=== PATIENT | male | born 1970 | race Caucasian/White ===

== ENCOUNTER 2018-11-05 01:28 | Emergency (ER) | payer BC ==
[~2018-11-05] VITALS: Ht 170.2 cm; Wt 77.1 kg
[~2018-11-05 01:28] MED LIST: ALTOPREV40 MG PO; PRED FORTE1 ML OD; VYVANSE20 MG PO
--- OUTSIDE RECORDS SUMMARY | 2018-11-05 01:30 | XMS ---
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 E.DSoledad VISIT COUNT (12 MO.) 1 FRANCO Polanco TOTAL 1 NOTE: Visits indicate total known visits. ED/UCC VISIT TRACKING (12 MO.) 11/05/2018 01:28 FRANCO Osorio OR TYPE: Emergency COMPLAINT: - ALTERED LOC INPATIENT VISIT TRACKING (12 MO.) No inpatient visits to display in this time frame [email or web address]
[2018-11-05] MEDS ORDERED: LISINOPRIL20 MG PO (01:46)
[2018-11-05] MEDS ORDERED: ATORVASTATIN CA40 MG PO (01:47)
--- NOTE | 2018-11-05 12:34 | EKG ---
[facility] [address] [place] [address] Signed Normal sinus rhythm Normal ECG No previous ECGs available Confirmed by TORITO MERCER MD ([id number]) on 11/05/2018 12:34:17 PM Electronically Signed By: TORITO MERCER MD 11/05/18 1234 PATIENT NAME: JEANNE RAMOS Electrocardiogram DATE OF : 74 PHYSICIAN: TORITO MERCER MD REPORT #: [id number] REPORT IS CONFIDENTIAL AND NOT TO BE RELEASED WITHOUT AUTHORIZATION
== END 2018-11-05 04:30 | disposition home or self-care (01) ==
LOC: ED 01:28
DX: R55 Syncope and collapse (principal); I10 Essential (primary) hypertension; F90.9 Attention-deficit hyperactivity disorder, unspecified type; Z79.899 Other long term (current) drug therapy
CPT/HCPCS: 36415; 70450; 71045; 80053; 81001; 84484; 85025; 93005; 93010; 96360; 99284-25; G0480; J7030

== ENCOUNTER 2023-06-03 08:13 | Day surgery (SDC) | payer OTHER ==
[2023-05-26 15:12] VITALS: BP 115/73
[~2023-06-03] VITALS: Ht 170.2 cm; Wt 90.9 kg
[~2023-06-03 08:13] MED LIST changes: +ATORVASTATIN CA40 MG PO; +LISINOPRIL20 MG PO
[2023-06-03 08:28] VITALS: BP 117/71
--- NOTE | 2023-06-03 09:39 | NUR ---
06/03/23 0939 Gina Solorzano PT TO PACU SLEEPING PT MAINTAINING SATS ABOVE 95% ON ROOM AIR
[2023-06-03 09:48] VITALS: BP 112/69
--- NOTE | 2023-06-03 10:56 | OR ---
[facility] [address] [place], [place] [address] Signed DATE OF OPERATION: 06/03/2023 SURGEON: Katie Moe MD PREOPERATIVE DIAGNOSIS: Father with a history of colonic polyps. POSTOPERATIVE DIAGNOSES: 1. 5 mm polypoid lesion at 50 cm (left colon). 2. Minimal internal anal skin tags x3. PROCEDURE: Colonoscopy biopsy. ESTIMATED BLOOD LOSS: None. INDICATIONS: Siva is a 52-year-old gentleman, asked to see me for his initial screening colonoscopy. He has no lower GI complaints. He said his father has a history of colonic polyps. There is no family history of colon cancer. In the office, I gave him a pamphlet on colonoscopy. We reviewed the nature of the test. There is risk including, but not limited to gas bloating, crampy abdominal pain, bleeding, perforation requiring surgery, and missed diagnosis. We also reviewed the written instructions for the bowel prep line by line. Siva has a history of daily alcohol use and ADD. He used to take Vyvanse. Apparently, he has discontinued that. After some discussion, we decided it would be best he undergo monitored anesthesia care with propofol infusion. It actually proved to be a alcaraz decision and as he did need a little extra propofol to keep him sedated. He had expressed understanding and wished to proceed. DESCRIPTION OF PROCEDURE: Amari was taken into our endoscopy suite and placed in the left lateral decubitus position. He was given monitored anesthesia care with propofol infusion per our nurse quality assurance monitor final. A digital rectal exam was performed and this was unremarkable. There were no external hemorrhoids. He had good sphincter tone. There were no masses. The adult colonoscope was introduced and advanced all around into the cecum under direct visualization of the camera without difficulty. His prep was quite good. We could easily see the appendiceal orifice and the ileocecal valve. The scope was then slowly withdrawn. We took several pictures throughout for photodocumentation. He had a small 4 mm polypoid lesion back at 50 cm in his left colon. It was biopsied and destroyed Electronically Signed By: KATIE MOE MD 06/03/23 1056 PATIENT NAME: AMARI RAMOS OPERATIVE REPORT DATE OF : 74 REPORT #: [id number] PHYSICIAN: KATIE MOE MD PCP: SHIVAM BRAXTON PAC REPORT IS CONFIDENTIAL AND NOT TO BE RELEASED WITHOUT AUTHORIZATION [facility] [address] [place], [place] [address] Signed completely with hot biopsy forceps. There was no diverticulosis. The rectum was unremarkable. Once in the rectum, the scope was retroflexed and he had 3 tiny internal anal skin tags. After this, the gas was suctioned out and the colonoscope removed. Kit tolerated the procedure quite well. RECOMMENDATIONS: I will see Kit back in my office in 7 to 14 days to review his results. He will likely stay on the five year plan since his father had colonic polyps. Katie Moe MD ALB/LOLISL /[id number] cc: MD Shivam Rinaldi PA Copies: KATIE MOE MD ~ Electronically Signed By: KATIE MOE MD 06/03/23 1056 PATIENT NAME: AMARI RAMOS OPERATIVE REPORT DATE OF : 74 REPORT #: [id number] PHYSICIAN: KATIE MOE MD PCP: SHIVAM BRAXTON PAC REPORT IS CONFIDENTIAL AND NOT TO BE RELEASED WITHOUT AUTHORIZATION
--- NOTE | 2023-06-03 19:18 | EKG ---
[facility] [address] [facility] [place] [address] Signed Normal sinus rhythm Normal ECG When compared with ECG of 26-MAY-2023 16:19, No significant change was found Confirmed by ADITHYA MANDUJANO MD ([id number]) on 06/03/2023 7:18:20 PM Electronically Signed By: ADITHYA MANDUJANO 06/03/231917 PATIENT NAME: JEANNE RAMOS Electrocardiogram DATE OF : 74 PHYSICIAN: ADITHYA MANDUJANO REPORT #: [id number] REPORT IS CONFIDENTIAL AND NOT TO BE RELEASED WITHOUT AUTHORIZATION
--- NOTE | 2023-06-08 15:38 | PATH ---
[facility] [address] [place], [place] [address] Signed SPECIMEN(S): A DESCENDING/LEFT COLON POLYP AT 50 CM SPECIMEN SOURCE: A. DESCENDING/LEFT COLON POLYP AT 50 CM CLINICAL HISTORY: Screening colonoscopy, family history of polyps FINAL PATHOLOGIC DIAGNOSIS: Colon, descending/left at 50 cm, polypectomy: - Hyperplastic polyp BRP MICROSCOPIC EXAMINATION: Histologic sections of all submitted blocks are examined by light microscopy. These findings, together with the gross examination, support the pathologic diagnosis. GROSS DESCRIPTION: The specimen, labeled and designated "Uri, descending/left colon polyp at 50 cm," is received in formalin and consists of two cheung soft tissue fragments, ranging from 0.2-0.5 cm. Entirely submitted in (A1). VB (under the direct supervision of a pathologist) The Gross Description was prepared using a voice recognition system. The report was reviewed for accuracy; however, sound-alike word errors, addition and/or deletions may occur. If there is any question about this report, please contact Client Services. ADDITIONAL NOTES: Immunohistochemical and/or in situ hybridization studies if performed in this case included appropriate positive controls that reacted as expected. This test was developed and its performance characteristics determined by [facility]. It has not been cleared or approved by the U.S. Food and Drug Administration. The FDA has determined that such clearance or approval is not necessary. This test is used for clinical purposes. It should not be regarded as investigational or for research. [facility] is certified under the Clinical Laboratory Improvement Amendments of 1988 (CLIA) as qualified to perform high complexity clinical laboratory testing. PATIENT NAME: JEANNE RAMOS PATHOLOGY DATE OF : 74 REPORT #: [id number] PHYSICIAN: TAYLOR DELANEY PCP: SHIVAM BRAXTON PAC REPORT IS CONFIDENTIAL AND NOT TO BE RELEASED WITHOUT AUTHORIZATION [facility] [address] [place], [place] [address] Signed PERFORMING LABORATORY: Technical component was performed by [facility], [address] [place] [address] (CLIA# [id number]). Professional interpretation was performed by [facility] - [facility], [address] [place] [address] (CLIA#: [id number]). Diagnostician: Bob Pedraza MD Pathologist Electronically Signed 06/08/2023 Copies: ~ PATIENT NAME: JEANNE RAMOS PATHOLOGY DATE OF : 74 REPORT #: [id number] PHYSICIAN: TAYLOR DELANEY PCP: SHIVAM BRAXTON PAC REPORT IS CONFIDENTIAL AND NOT TO BE RELEASED WITHOUT AUTHORIZATION
== END 2023-06-03 10:10 | disposition home or self-care (01) ==
LOC: DS 08:13 → OPS 08:13 → DS 11:00 → OPS 11:00
PROVIDERS: ATTEND Colon & Rectal Surgery
PROC: 0DBG8ZX Excision of Left Large Intestine, Via Natural or Artificial Opening Endoscopic, Diagnostic (ICD-10-PCS; principal; 2023-06-03 10:10)
DX: Z12.11 Encounter for screening for malignant neoplasm of colon (principal); K63.5 Polyp of colon; K64.4 Residual hemorrhoidal skin tags; Z83.719 Family history of colon polyps, unspecified; I10 Essential (primary) hypertension; I25.10 Atherosclerotic heart disease of native coronary artery without angina pectoris; E78.5 Hyperlipidemia, unspecified; F90.0 Attention-deficit hyperactivity disorder, predominantly inattentive type; G47.33 Obstructive sleep apnea (adult) (pediatric); Z79.899 Other long term (current) drug therapy
CPT/HCPCS: 00811; 93005; 93010; J2001; J2704; J7121